=== PATIENT | male | born 1960 | race Caucasian/White ===

== ENCOUNTER 2017-03-22 09:57 | Emergency (ER) | payer OTHER, SELFPAY ==
[2017-03-22 10:24] VITALS: BP 161/95; PULSE 70; RESP 18; TEMP 36.7; O2SAT 98; BMI 32.5
--- NOTE | 2017-03-22 10:24 | CT_ITS ---
CT head/brain wo con HISTORY: 08/12/2014 ITS.REASON: LEFT LEG WEAKNESS AND PRIOR STROKE ORDERING PHYSICIAN: Cliff De Guzman MD PATIENT AGE: 57 years COMPARISON: 08/12/2014 TECHNIQUE: Axial images obtained without contrast. Brain and bone windows reviewed. FINDINGS: No midline shift, mass effect, intracranial hemorrhage, hydrocephalus, or extra-axial fluid collection is evident. Low-density changes are present in the left parietal region consistent with encephalomalacia change from prior infarction. There is mild atrophy of the left cerebral cortex in the frontal and parietal region compared to the right side. The calvarium has an unremarkable appearance. There is opacification of the right mastoid sinus and partial opacification of the left mastoid sinus.. No sinus air-fluid levels.. IMPRESSION: 1. No acute intracranial findings. 2. 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 3. Bilateral mastoid sinus disease 4. There is no evidence of intracranial hemorrhage, focal mass, or acute territorial infarction. A negative CT does not exclude an acute CVA. A follow-up head CT or MRI is recommended if neurological symptoms persist
--- NOTE | 2017-03-22 10:24 | HMH.EDNEU ---
ED Disposition Clinical Impression: Cerebral infarction Qualifiers: Cerebral infarction mechanism: vascular occlusion Precerebral and cerebral artery: carotid artery Laterality of affected vessel: right Qualified Code(s): I63.231 - Cerebral infarction due to unspecified occlusion or stenosis of right carotid arteries Disposition: Xfer Critical Access Hosp Condition on Discharge: Fair Additional Instructions: Discussed with Stroke Team, Dr Hughes. and they will be happy to evaluate but feel he needs access to Vascular Surgery to address his Carotid stenosis. Pt will be going to today for evaluation Referrals: Grady Dao MD [Primary Care Provider] - Time of Disposition: 13:35 - Critical Care Critical Care Time: No Attestation: On 03/22/17, the high probability of a clinically significant, sudden or life threatening deterioration of the following system(s) required my full and direct attention, intervention and personal management. The time I documented below is in addition to time spent performing reported procedures but includes the following listed in this critical care notation. Medical Decision Making - Medical Records Medical records reviewed: Yes: I reviewed the patient's medical records. Vital Signs: 03/22/17 10:24 Temperature 98.0 F Temperature Source Temporal Artery Scan Pulse Rate [Right Brachial] 70 Respiratory Rate 18 Blood Pressure [Right Arm] 161/95 Blood Pressure Mean [Right Arm] 117 Blood Pressure Source [Right Arm] Automatic Cuff Blood Pressure Position [Right Arm] Supine 02 Sat by Pulse Oximetry 98 Oxygen Delivery Method Room Air - Lab Data Lab results reviewed: Yes: I reviewed the patient's lab results. Lab Results 03/22/17 10:08: WBC 8.8, RBC 5.96, Hgb 17.2, Hct 52.8 H, MCV 88.5, MCH 28.9, MCHC 32.6, RDW 13.4, Plt Count 154, MPV 7.8, Neut % (Auto) 69.4, Lymph % (Auto) 22.5, [place] % (Auto) 5.6, Eos % (Auto) 2.1, Baso % (Auto) 0.4, Neut # (Auto) 6.1, Lymph # (Auto) 2.0, [place] # (Auto) 0.5, Eos # (Auto) 0.2, Baso # (Auto) 0.0 03/22/17 10:08: Sodium 139, Potassium 4.1, Chloride 103, Carbon Dioxide 27, Anion Gap 13.1, BUN 16, Creatinine 0.95, Estimated Creat Clear 109, Estimated GFR > 60, Est GFR ( Amer) > 60, Glucose 108 H, Calcium 9.2, Total Bilirubin 0.5, AST 23, ALT 30, Alkaline Phosphatase 78, Total Protein 7.7, Albumin 4.0, Globulin 3.7 H, Albumin/Globulin Ratio 1.1, Plasma/Serum Alcohol 0 03/22/17 10:57: PT 10.9, INR 1.01 03/22/17 11:10: Urine Color Yellow, Urine Appearance Clear, Urine pH 5.5, Ur Specific [place] 1.025, Urine Protein Negative, Urine Glucose (UA) Negative, Urine Ketones Negative, Urine Blood Negative, Urine Nitrate Negative, Urine Bilirubin Negative, Urine Urobilinogen 0.2, Ur Leukocyte Esterase Negative, Urine Bacteria Trace, Urine Mucus 2+ 03/22/17 11:10: Urine Opiates Screen Negative, Ur Barbituates Screen Negative, Ur Phencyclidine Scrn Negative, Ur Amphetamines Screen Negative, U Methamphetamines Scrn Negative, U Benzodiazepines Scrn Negative, Urine Cocaine Screen Negative, U Marijuana (THC) Screen Negative 03/22/17 11:10: POC Glucose 97 Result diagrams: 03/22/17 10:08 03/22/17 10:08 Orders (Tests/Meds): ED MEDICATIONS Discontinued Medications Generic Name Dose Route Start Last Admin Trade Name Frank PRN Reason Stop Dose Admin Clonidine HCl 0.1 mg 03/22/17 10:22 03/22/17 10:39 Clonidine 0.1mg Tablet PO 03/22/17 10:23 0.1 mg ONCE ONE Administration Lorazepam 1 mg 03/22/17 10:17 03/22/17 10:20 Ativan 2mg/Ml Vial IV 03/22/17 10:18 1 mg ONCE ONE Administration ORDERS Category Date Time Status CT head request [CT Request head] Stat Cat Scan 03/22/17 10:18 Taken Glucose,Fasting Stat Lab 03/22/17 10:30 Ordered - CT Data CT Scan: Head Time Received: 13:[address] Reviewed: Yes: I discussed the CT results w/the radiologist, I have viewed the radiologist's interpretation - Mateo Inquiry Pt rece
--- NOTE | 2017-03-22 10:27 | ED_ITS ---
ED Disposition Clinical Impression: Cerebral infarction Qualifiers: Cerebral infarction mechanism: vascular occlusion Precerebral and cerebral artery: carotid artery Laterality of affected vessel: right Qualified Code(s): I63.231 - Cerebral infarction due to unspecified occlusion or stenosis of right carotid arteries Disposition: Xfer Critical Access Hosp Condition on Discharge: Fair Additional Instructions: Discussed with Stroke Team, Dr Hughes. and they will be happy to evaluate but feel he needs access to Vascular Surgery to address his Carotid stenosis. Pt will be going to today for evaluation Referrals: Grady Dao MD [Primary Care Provider] - Time of Disposition: 13:35 - Critical Care Critical Care Time: No Attestation: On 03/22/17, the high probability of a clinically significant, sudden or life threatening deterioration of the following system(s) required my full and direct attention, intervention and personal management. The time I documented below is in addition to time spent performing reported procedures but includes the following listed in this critical care notation. Medical Decision Making - Medical Records Medical records reviewed: Yes: I reviewed the patient's medical records. Vital Signs: 03/22/17 10:24 Temperature 98.0 F Temperature Source Temporal Artery Scan Pulse Rate [Right Brachial] 70 Respiratory Rate 18 Blood Pressure [Right Arm] 161/95 Blood Pressure Mean [Right Arm] 117 Blood Pressure Source [Right Arm] Automatic Cuff Blood Pressure Position [Right Arm] Supine 02 Sat by Pulse Oximetry 98 Oxygen Delivery Method Room Air - Lab Data Lab results reviewed: Yes: I reviewed the patient's lab results. Lab Results 03/22/17 10:08: WBC 8.8, RBC 5.96, Hgb 17.2, Hct 52.8 H, MCV 88.5, MCH 28.9, MCHC 32.6, RDW 13.4, Plt Count 154, MPV 7.8, Neut % (Auto) 69.4, Lymph % (Auto) 22.5, [place] % (Auto) 5.6, Eos % (Auto) 2.1, Baso % (Auto) 0.4, Neut # (Auto) 6.1 , Lymph # (Auto) 2.0, [place] # (Auto) 0.5, Eos # (Auto) 0.2, Baso # (Auto) 0.0 03/22/17 10:08: Sodium 139, Potassium 4.1, Chloride 103, Carbon Dioxide 27, Anion Gap 13.1, BUN 16, Creatinine 0.95, Estimated Creat Clear 109, Estimated GFR > 60, Est GFR ( Amer) > 60, Glucose 108 H, Calcium 9.2, Total Bilirubin 0.5, AST 23, ALT 30, Alkaline Phosphatase 78, Total Protein 7.7, Albumin 4.0, Globulin 3.7 H, Albumin/Globulin Ratio 1.1, Plasma/Serum Alcohol 0 03/22/17 10:57: PT 10.9, INR 1.01 03/22/17 11:10: Urine Color Yellow, Urine Appearance Clear, Urine pH 5.5, Ur Specific [place] 1.025, Urine Protein Negative, Urine Glucose (UA) Negative, Urine Ketones Negative, Urine Blood Negative, Urine Nitrate Negative, Urine Bilirubin Negative, Urine Urobilinogen 0.2, Ur Leukocyte Esterase Negative, Urine Bacteria Trace, Urine Mucus 2+ 03/22/17 11:10: Urine Opiates Screen Negative, Ur Barbituates Screen Negative, Ur Phencyclidine Scrn Negative, Ur Amphetamines Screen Negative, U Methamphetamines Scrn Negative, U Benzodiazepines Scrn Negative, Urine Cocaine Screen Negative, U Marijuana (THC) Screen Negative 03/22/17 11:10: POC Glucose 97 Result diagrams: 03/22/17 10:08 03/22/17 10:08 Orders (Tests/Meds): ED MEDICATIONS Discontinued Medications Generic Name Dose Route Start Last Admin Trade Name Frank PRN Reason Stop Dose Admin Clonidine HCl 0.1 mg 03/22/17 10:22 03/22/17 10:39 Clonidine 0.1mg Tablet PO 03/22/17 10:23 0.1 mg ONC
[2017-03-22 10:34] LABS: Basophils % 0.4 % (0.1-2.0); Eosinophils # 0.2 K/mm3 (0.0-0.4); Eosinophils % 2.1 % (0.1-12.0); Hematocrit 52.8 % (42.0-52.0); Hemoglobin 17.2 g/dL (14.1-18.0); Lymphocytes % 22.5 K/mm3 (10-50); Mean Corpuscular HGB Conc 32.6 g/dL (31.8-35.4); Mean Corpuscular Hemoglobin 28.9 pg (27.0-31.2); Mean Corpuscular Volume 88.5 fl (80-94); Mean Platelet Volume 7.8 fl (7.4-10.4); Monocytes # 0.5 K/mm3 (0.1-1.0); Monocytes % 5.6 % (1.7-9.3); Neutrophils # 6.1 K/mm3 (1.8-7.8); Neutrophils % 69.4 % (37.0-80.0); Platelet Count 154 K/mm3 (142-424); Red Blood Count 5.96 M/mm3 (4.60-6.20); Red Cell Distribution Width 13.4 % (11.5-17.5); White Blood Count 8.8 K/mm3 (4.8-10.8)
[2017-03-22 10:43] LABS: Alanine Aminotransferase 30 U/L (12-78); Albumin/Globulin Ratio 1.1 (1.1-1.8); Alkaline Phosphatase 78 U/L (46-116); Anion Gap 13.1 mEq/L (5-15); Bilirubin,Total 0.5 mg/dL (0.2-1.0); Blood Urea Nitrogen 16 mg/dL (7-18); Calcium 9.2 mg/dL (8.5-10.1); Carbon Dioxide 27 mmol/L (21.0-32.0); Chloride 103 mmol/L (98-107); Creatinine Clearance Estimated 109 mL/min (0-300); Creatinine,Serum 0.95 mg/dL (0.70-1.30); Estimated Glomerular Filt Rate > 60 ml/min (>60); GFR (African American) > 60 ML/MIN (>60); Globulin 3.7 gm/dl (1.3-3.2); Glucose 108 mg/dL (74-106); Sodium 139 mmol/L (136-145); Total Protein,Serum 7.7 gm/dL (6.4-8.2)
[2017-03-22 10:50] LABS: Aspartate Amino Transferase 23 U/L (15-37); Ethyl Alcohol 0 mg/dL (0-99); Potassium 4.1 mmoL/L (3.5-5.1)
[2017-03-22 11:18] LABS: POC Glucose,Bedside 97 mg/dL
[2017-03-22 11:30] LABS: INR 1.01 (0.9-1.1); Prothrombin Time 10.9 seconds (9.4-11.8)
[2017-03-22 11:30] LABS: Microscopic, Urine URINE MICROSCOPIC (MICROSCOPIC)
[2017-03-22 11:37] LABS: Appearance,Urine CLEAR (Clear); Bilirubin,Urine Negative (Negative); Blood, Urine Negative (Negative); Color,Urine YELLOW (Yellow); Glucose,Urine (UA) Negative (Negative); Ketones,Urine Negative (Negative); Leukocyte Esterase,Urine Negative (Negative); Nitrate,Urine Negative (Negative); PH,Urine 5.5 (5.0-8.5); Protein,Urine Negative (Negative); Specific Gravity, Urine 1.025 (1.005-1.030); Urobilinogen,Urine 0.2 EU/dl (0.2)
[2017-03-22 11:45] LABS: Amphetamine/Metha Screen,Urine Negative ng/mL (<1000); Barbiturates Screen,Urine Negative ng/mL (<200); Benzodiazepines Screen,Urine Negative ng/mL (200); Cannabinoid Screen,Urine Negative ng/mL (<50); Cocaine Screen,Urine Negative ng/g (<300); Methadone Screen,Urine Negative ng/mL (<300); Opiate Screen,Urine Negative ng/mL (<300); Phencyclidine Screen,Urine Negative ng/mL (<25)
[2017-03-22 12:02] LABS: Mucus,Urine 2+ /lpf
[2017-03-22 12:03] LABS: Bacteria,Urine Trace /lpf
--- NOTE | 2017-03-22 12:54 | PC.NURSE ---
Call placed to [facility].
[2017-03-22 14:42] VITALS: BP 157/70; PULSE 82; RESP 18; TEMP 36.8
== END 2017-03-22 14:41 | disposition critical access hospital (66) ==
PROVIDERS: Emergency Provider General Practice; Family Provider Emergency Medicine; PCP Emergency Medicine
DX: I63.231 Cerebral infarction due to unspecified occlusion or stenosis of right carotid arteries (principal); I69.344 Monoplegia of lower limb following cerebral infarction affecting left non-dominant side; F17.210 Nicotine dependence, cigarettes, uncomplicated; I10 Essential (primary) hypertension; I25.10 Atherosclerotic heart disease of native coronary artery without angina pectoris; J45.909 Unspecified asthma, uncomplicated; Z79.82 Long term (current) use of aspirin; Z79.899 Other long term (current) drug therapy; Z79.51 Long term (current) use of inhaled steroids
CPT/HCPCS: 70450; 80053; 80305; 81001; 82962; 85025; 85610; 96374; 99283

== ENCOUNTER → 2017-06-04 12:55 | Outpatient (CLI) | payer OTHER, SELFPAY ==
--- NOTE | 2017-06-04 12:59 | MR_ITS ---
MR lumbar spine wo con, MR 3-d myelogram/MRCP HISTORY: Low back pain with left leg numbness resting left leg when walking, occasional urinary incontinence ORDERING PHYSICIAN: Grady Dao MD PATIENT AGE: 57 years COMPARISON: None TECHNIQUE: Standard multiplanar multiecho sequences are performed without contrast. 3-D MIP and myelographic images are also rendered and reviewed FINDINGS: There is normal alignment. The spinal cord ends at the T12-L1 level. T11-T12 mild facet hypertrophic change with mild concentric bulging disc with lateral disc aspect complexes T12-L1: Mild degenerative disc disease with mild concentric bulging disc with lateral disc osteophyte complexes L1-L2: Mild degenerative disc disease with some endplate irregularity involving the inferior aspect of L1. L2-L3: Mild concentric bulging disc with right lateral disc osteophyte complex L3-L4: Mild concentric bulging disc along with facet and ligamentum hypertrophy. There is mild bilateral lateral recess narrowing and mild bilateral foraminal narrowing. L4-5: Mild anterolisthesis of L4 with concentric bulging disc along with facet and ligamentum flavum hypertrophy. There is severe narrowing of the canal in both AP and transverse plane measuring 7 mm in the transverse plane with severe bilateral lateral recess narrowing and moderate bilateral foraminal narrowing. L5-S1: Concentric bulging disc with facet and ligamentum flavum hypertrophy with bilateral moderate foraminal narrowing No extruded herniated disc evident. IMPRESSION: Multilevel lumbar spondylosis with multilevel degenerative disc disease and bulging disc with lateral disc osteophyte complexes. Please see above for detailed description at each level Mild anterolisthesis of L4 with concentric bulging disc at L4-L5 along with facet and ligamentum flavum hypertrophy. There is severe narrowing of the canal in both AP and transverse plane measuring 7 mm in the transverse plane with severe bilateral lateral recess narrowing and moderate bilateral foraminal narrowing
== END ==
PROVIDERS: Family Provider Emergency Medicine; PCP Emergency Medicine; Visit Provider Emergency Medicine
DX: M54.5 Low back pain (principal)
CPT/HCPCS: 72148; 76376

== ENCOUNTER → 2017-06-22 09:20 | Outpatient (REF) | payer OTHER, SELFPAY ==
[2017-06-22 13:38] LABS: Basophils % 0.4 % (0.1-2.0); Eosinophils # 0.1 K/mm3 (0.0-0.4); Eosinophils % 2.2 % (0.1-12.0); Hematocrit 50.6 % (42.0-52.0); Hemoglobin 16.4 g/dL (14.1-18.0); Lymphocytes # 1.1 K/mm3 (0.7-4.5); Lymphocytes % 16.9 K/mm3 (10-50); Mean Corpuscular HGB Conc 32.4 g/dL (31.8-35.4); Mean Corpuscular Hemoglobin 28.9 pg (27.0-31.2); Mean Corpuscular Volume 89.3 fl (80-94); Mean Platelet Volume 8.7 fl (7.4-10.4); Monocytes # 0.4 K/mm3 (0.1-1.0); Monocytes % 6.3 % (1.7-9.3); Neutrophils # 4.9 K/mm3 (1.8-7.8); Neutrophils % 74.1 % (37.0-80.0); Platelet Count 150 K/mm3 (142-424); Red Blood Count 5.67 M/mm3 (4.60-6.20); Red Cell Distribution Width 13.6 % (11.5-17.5); White Blood Count 6.6 K/mm3 (4.8-10.8)
[2017-06-22 15:05] LABS: Alanine Aminotransferase 26 U/L (12-78); Albumin Level 3.7 gm/dL (3.4-5.0); Albumin/Globulin Ratio 1.3 (1.1-1.8); Alkaline Phosphatase 83 U/L (46-116); Anion Gap 10.6 mEq/L (5-15); Aspartate Amino Transferase 15 U/L (15-37); Bilirubin,Total 0.3 mg/dL (0.2-1.0); Blood Urea Nitrogen 10 mg/dL (7-18); Calcium 8.9 mg/dL (8.5-10.1); Carbon Dioxide 29 mmol/L (21.0-32.0); Chloride 110 mmol/L (98-107); Chol/HDL Ratio 3.9 (1-3.5); Cholesterol 121 mg/dL (140-200); Creatinine,Serum 0.84 mg/dL (0.70-1.30); Estimated Glomerular Filt Rate 94 ml/min (>60); GFR (African American) 113 ML/MIN (>60); Globulin 2.8 gm/dl (1.3-3.2); Glucose 83 mg/dL (74-106); HDL Cholesterol 31 mg/dL (27-67); LDL Cholesterol 59 mg/dL (0-130); Potassium 4.6 mmoL/L (3.5-5.1); Sodium 145 mmol/L (136-145); T4 (Thyroxine) 9.6 ug/dl (4.7-13.3); Thyroid Stimulating Hormone 1.19 uIU/ml (0.358-3.740); Total Protein,Serum 6.5 gm/dL (6.4-8.2); Triglycerides 153 mg/dL (30-200); VLDL Cholesterol 31 mg/dL (0-40)
[2017-06-24 15:53] LABS: PSA, Free 0.27 ng/mL; Prostate Specific Ag 0.8 ng/mL (0.0-4.0)
== END ==
LOC: LAB 09:20
PROVIDERS: Visit Provider Physician Assistant
DX: I10 Essential (primary) hypertension (principal)
CPT/HCPCS: 80053; 80061; 84153; 84154; 84436; 84443; 85025

== ENCOUNTER → 2017-07-01 13:30 | Outpatient (POV) | payer OTHER, SELFPAY | PROVIDERS: Family Provider Emergency Medicine; PCP Emergency Medicine; Visit Provider Neurological Surgery | DX: Z00.00 Encounter for general adult medical examination without abnormal findings (principal) ==

== ENCOUNTER → 2017-07-05 10:02 | Outpatient (CLI) | payer OTHER, SELFPAY ==
--- NOTE | 2017-07-05 10:03 | MR_ITS ---
MR cervical spine wo con, MR 3-d myelogram/MRCP HISTORY: Bilateral upper extremity and Hand Numbness, LT side neck discomfort since March. LT leg won't work at times and will have uncontrollable shaking in LT Leg. Rt leg will do the same at times . ITS.REASON: bilateral upper extremity numbness; lumbar stenosis ORDERING PHYSICIAN: ANDRES Porras PATIENT AGE: 57 years TECHNIQUE: Standard multiplanar multiecho sequences are performed without contrast. 3-D MIP and myelographic images are also rendered and reviewed FINDINGS: Motion artifact somewhat obscures fine detail. There is normal alignment. Craniocervical junction has an unremarkable appearance. C2-C3: Mild left foraminal narrowing from uncovertebral and facet hypertrophy. C3-C4: Mild degenerative disc disease with a small broad-based left paracentral and foraminal disc osteophyte complex causing left lateral recess and foraminal narrowing. Mild right foraminal narrowing from uncovertebral hypertrophy. C4-C5: Degenerative disc disease with bulging disc with type I endplate changes. There is bulging disc with a small central disc protrusion/herniation with mild to moderate compression upon the cord centrally with canal stenosis of 8 mm. There is increased T2 signal of the cord at this region suggesting some underlying edema or gliotic change. Bilateral foraminal and lateral recess narrowing is present from bilateral uncovertebral disc osteophyte complexes. C5-C6: Degenerative disc disease with mild bulging disc. C6-C7 and C7-T1 have an unremarkable appearance. Upper thoracic sagittal images show degenerative disc disease at T1-T2 and T2-T3 with bulging disc. IMPRESSION: 1. Abnormal MRI of the cervical spine with multilevel cervical spondylosis with degenerative disc disease, bulging disc, disc osteophyte complexes and uncovertebral and facet arthrosis as described above. Please evaluate for detail description at each level. There is degenerative disc disease and upper thoracic spine as well. 2. Small broad-based left paracentral and foraminal disc osteophyte complex at C3-C4 causing left lateral recess and foraminal narrowing. 3. Degenerative disc disease with bulging disc and small central disc protrusion/herniation at C4-C5 causing mild to moderate central compression upon the cord with bilateral disc osteophyte complexes of the vertebral region with bilateral lateral recess and foraminal narrowing. There is increased T2 signal of the cord this region suggesting underlying edema or gliosis IMPRESSION:
== END ==
PROVIDERS: Family Provider Emergency Medicine; PCP Emergency Medicine; Visit Provider Physician Assistant
DX: R20.0 Anesthesia of skin (principal); M54.2 Cervicalgia
CPT/HCPCS: 72141; 76376

== ENCOUNTER → 2017-10-21 11:06 | Outpatient (CLI) | payer OTHER, SELFPAY ==
[2017-10-21 11:27] LABS: Blood Urea Nitrogen 15 mg/dL (7-18); Creatinine,Serum 0.97 mg/dL (0.70-1.30); Estimated Glomerular Filt Rate 79 ml/min (>60); GFR (African American) 96 ML/MIN (>60)
== END ==
PROVIDERS: Physician Assistant Medical; Family Provider Emergency Medicine; PCP Emergency Medicine; Visit Provider Neurological Surgery
DX: Z00.00 Encounter for general adult medical examination without abnormal findings (principal); R20.2 Paresthesia of skin
CPT/HCPCS: 36415; 82565; 84520

== ENCOUNTER → 2017-11-26 12:26 | Outpatient (CLI) | payer OTHER, SELFPAY ==
--- NOTE | 2017-11-26 12:27 | CA_ITS ---
PROCEDURE: 2-D M-mode and color Doppler study INDICATIONS FOR THE TEST: Chest pain COPD Heart Murmur+ Tobacco Smoking+ Palpitations Fatigue+ Syncope Edema+ Hypertension+Diabetes Mellitus Rheumatic Fever SOB+ROE+Obesity Hyperlipidemia Family History HD+ Additional History Abn EKG, PAD, Hx of CVA, dizziness, hx [place], asthma PATIENT INFORMATION HEIGHT: 66 WEIGHT: 194 GENDER: Male B/P:194/97 2-D/M-MODE INTERPRETATION: 2-D MEASUREMENTS OBSERVED VALUES IN CMS Right Ventricular Dimension (RVDd) 2.2 Interventricular Septum (Thickness)(IVsd) 1.2 Left Ventricular Internal Dimensions(LVIDd) 4.2 Left Ventricular Posterior Wall (Thickness)(LVPWd) 1.2 Aortic Root 2.8 Aortic Cusp Separation 1.8 Left Atrial Dimensions (LAD) 3.5 2D 1. Left atrium is mildly enlarged, left ventricle is normal size, mild concentric left ventricular hypertrophy, visually estimated ejection fraction 55% with no regional wall motion abnormality. 2. The right atrium and right ventricle are normal size and contractility. 3. The aortic valve is thickened and calcified with mild restriction the leaflet mobility. 4. The mitral and tricuspid valvular grossly normal. 5. The pulmonic valve is poorly visualized. 6. No significant pericardial effusion noted. DOPPLER INTERROGATION: 1. The maximum aortic out flow velocity recorded study is 2.2 m/s, resulting in a mean gradient across valve of 9 mmHg represents mild aortic stenosis, there is no aortic insufficiency. 2. The mitral inflow velocity within normal range, there is no mitral stenosis, there is mild mitral regurgitation, grade 1 diastolic dysfunction seen with tissue Doppler evidence of raised left atrial pressure. 3. Mild tricuspid regurgitation, tricuspid regurgitation jet velocity is insufficient for calculation of the right ventricular systolic pressure. CONCLUSION: 1. Mildly enlarged left atrium, normal left ventricular size, mild concentric left ventricular hypertrophy, visually estimated ejection fraction of 55% with no regional wall motion abnormality, grade 1 diastolic dysfunction seen with tissue Doppler evidence of raised left atrial pressure. 2. Thickened and calcified aortic valve with mean gradient across valve of 9 mmHg,represents mild aortic stenosis, there is no aortic insufficiency present. 3. Mild tricuspid regurgitation 4. No significant pericardial effusion noted.
--- NOTE | 2017-11-26 12:27 | US_ITS ---
US Arterial Ankle Brachial Ind History: Bilateral foot discoloration, peripheral vascular disease, current smoker, hypertension ITS.REASON: htn ORDERING PHYSICIAN: Damon Art MD PATIENT AGE: 57 years TECHNIQUE: Segmental pressures obtained of both right and left leg. These are compared to brachial blood pressure to yield index at each level sampled including summary ROSA. The data sheets from the procedure are available in PACS FINDINGS Rest study only performed today No prior studies available for comparison. Blood pressures reported are in millimeters mercury. RIGHT LEG ROSA = 0.7. RIGHT LEG TBI=0.7 Brachial BP: 121 Thigh BP: Not performed due to synthetic graft Calf BP: 76 Ankle PT: 88 Ankle DP : 74 Digit =83 LEFT LEG ROSA = 0.6 LEFT LEG TBI= 0.7 Brachial BPD: 122 Thigh BP: 77 Calf BP: 72 Ankle PT:74 Ankle DP: 68 Digit = 82 Pulses and waveforms: Abnormal waveforms and diminished pulses IMPRESSION: Abnormal ABIs of 0.7 on the right and 0.6 on the left and diminished pulses and abnormal waveforms suggesting moderate atherosclerotic vascular disease
== END ==
PROVIDERS: Family Provider Emergency Medicine; PCP Emergency Medicine; Visit Provider Internal Medicine
DX: R94.31 Abnormal electrocardiogram [ECG] [EKG] (principal); R01.1 Cardiac murmur, unspecified; R06.09 Other forms of dyspnea; I10 Essential (primary) hypertension; F10.20 Alcohol dependence, uncomplicated; F17.200 Nicotine dependence, unspecified, uncomplicated; I63.9 Cerebral infarction, unspecified; I65.23 Occlusion and stenosis of bilateral carotid arteries; I73.9 Peripheral vascular disease, unspecified; M48.00 Spinal stenosis, site unspecified; R09.89 Other specified symptoms and signs involving the circulatory and respiratory systems; R20.0 Anesthesia of skin; R42 Dizziness and giddiness; Z82.49 Family history of ischemic heart disease and other diseases of the circulatory system
CPT/HCPCS: 93306; 93922

== ENCOUNTER → 2017-12-02 08:12 | Outpatient (CLI) | payer OTHER, SELFPAY ==
--- NOTE | 2017-12-02 08:14 | AS_ITS ---
Renal Arterial Duplex Indications: 405.91 Unspecified renovascular hypertension. IMPRESSIONS 1. Greater than 60% stenosis involving the right renal artery 2. Greater than 60% stenosis involving the left renal artery 3. Kidney size is within normal limits, bilaterally. Renal veins appear patent, bilaterally. Complete renal arterial duplex. Duplex scan and Doppler flow study including spectral analysis, color and pena scale imaging. Height: Height: 167.6cm. Height: 66in. Weight: Weight: 86.2kg. Weight: 189.6lb. Body mass index: BMI: 30.7kg/m^2. Body surface area: BSA: 2.03m^2. Location: Vascular laboratory. Patient status: Outpatient. Tables: Arterial flow: + +-------+--------+ Location V sys V ed + +-------+--------+ Right renal - proximal 221cm/s 69.3cm/s + +-------+--------+ Right renal - mid 310cm/s 63.4cm/s + +-------+--------+ Right renal - distal 243cm/s 69.5cm/s + +-------+--------+ Left renal - proximal 227cm/s 63.4cm/s + +-------+--------+ Left renal - mid 183cm/s 50.2cm/s + +-------+--------+ Left renal - distal 201cm/s 47.2cm/s + +-------+--------+ Right renal - Origin 201cm/s 69cm/s + +-------+--------+ Left renal - Origin 371cm/s 92cm/s + +-------+--------+ Aorta 89cm/s -------- + +-------+--------+ Artery mapping: + +--------+-------+ Location Diameter Patency + +--------+-------+ Abdominal aorta - mid 1.7mm Patent + +--------+-------+ Renal anatomy: + +-----+------+ Left Right + +-----+------+ Long axis 9.7cm 10.8cm + +-----+------+ Short axis 4.5cm 5.3cm + +-----+------+ Velocity ratios: + +-----+ V sys + +-----+ Right renal/aortic 3.5 + +-----+ Left renal/aortic 4.2 + +-----+ (Report amended ) Electronically signed by: Himanshu Pitts [id number]
--- NOTE | 2017-12-02 08:14 | US_ITS ---
US abd. aorta screening HISTORY: ITS.REASON: abdominal bruit, screening for aortic aneurysm ORDERING PHYSICIAN: Damon Art MD PATIENT AGE: 57 years Comparison: None FINDINGS: Transverse and longitudinal images are obtained of the abdominal aorta showing mild amount plaque. No evidence of abdominal aortic aneurysm. Proximal common iliacs are not demonstrated. Maximum AP dimension of the aorta is approximately 1.4 cm. IMPRESSION: No evidence of abdominal aortic aneurysm. Mild atheromatous changes of the aorta
== END ==
PROVIDERS: Family Provider Emergency Medicine; PCP Emergency Medicine; Visit Provider Internal Medicine
DX: I10 Essential (primary) hypertension (principal); I63.9 Cerebral infarction, unspecified; I65.23 Occlusion and stenosis of bilateral carotid arteries; R06.09 Other forms of dyspnea; F10.20 Alcohol dependence, uncomplicated; F17.200 Nicotine dependence, unspecified, uncomplicated; I73.9 Peripheral vascular disease, unspecified; M48.00 Spinal stenosis, site unspecified; R01.1 Cardiac murmur, unspecified; R09.89 Other specified symptoms and signs involving the circulatory and respiratory systems; R20.0 Anesthesia of skin; R42 Dizziness and giddiness; R94.31 Abnormal electrocardiogram [ECG] [EKG]; Z82.49 Family history of ischemic heart disease and other diseases of the circulatory system
CPT/HCPCS: 76705; 93976

== ENCOUNTER → 2018-01-27 08:46 | Outpatient (CLI) | payer OTHER, SELFPAY | PROVIDERS: PCP Emergency Medicine; Visit Provider Internal Medicine Cardiovascular Disease | DX: G47.33 Obstructive sleep apnea (adult) (pediatric) (principal) | CPT/HCPCS: 95806 ==

== ENCOUNTER → 2018-05-11 12:34 | Outpatient (CLI) | payer OTHER, SELFPAY ==
--- NOTE | 2018-05-11 12:41 | CI_ITS ---
Cerebrovascular Exam Indications: Follow-up carotid 433.10. IMPRESSIONS 1. The bilateral vertebral arteries are patent with normal antegrade flow. 2. Study suggests less than 20% stenosis involving the right internal carotid artery. Disease regression from the study of 10-Nov-2016. 3. Study suggests occlusion involving the left common carotid and internal carotid artery. No change from the study of 10-Nov-2016. 4. Study suggests occlusion involving the left common and internal carotid artery. No change from the study of 10-Nov-2016. History: Hx of Stroke. Risk factors: Current tobacco use. Hypertension. Labs, prior tests, procedures, and surgery: Right endarterectomy. 2017 Labs, prior tests, procedures, and surgery: Right endarterectomy. 2017 Carotid duplex study. Complete study and Doppler flow study including spectral analysis, color and pena scale imaging. Height: Height: 167.6cm. Height: 66in. Weight: Weight: 95.3kg. Weight: 209.6lb. Body mass index: BMI: 33.9kg/m^2. Body surface area: BSA: 2.14m^2. Location: Vascular laboratory. Patient status: Outpatient. Tables: Arterial flow: + +--------+--------+ Location V sys V ed + +--------+--------+ Right CCA - proximal 87.2cm/s 20.4cm/s + +--------+--------+ Right CCA - distal 74.6cm/s 27.5cm/s + +--------+--------+ Right ECA 127cm/s 20.4cm/s + +--------+--------+ Right ICA - proximal 114cm/s 17.3cm/s + +--------+--------+ Right ICA - mid 93.5cm/s 36.9cm/s + +--------+--------+ Right ICA - distal 63.6cm/s 22.8cm/s + +--------+--------+ Right vertebral 72.3cm/s 20.4cm/s + +--------+--------+ Left ECA 73.1cm/s 14.1cm/s + +--------+--------+ Left vertebral 75.4cm/s 22cm/s + +--------+--------+ (Report amended ) Electronically signed by: Himanshu Pitts [id number]
== END ==
LOC: RT 12:39
PROVIDERS: PCP Emergency Medicine; Visit Provider Internal Medicine Cardiovascular Disease
DX: I65.23 Occlusion and stenosis of bilateral carotid arteries (principal)
CPT/HCPCS: 93880

== ENCOUNTER → 2019-08-30 13:54 | Outpatient (CLI) | payer OTHER, SELFPAY ==
[2019-08-30 14:36] LABS: Chloride 106 mmol/L (98-107)
[2019-08-30 14:37] LABS: Potassium 4.2 mmoL/L (3.5-5.1); Sodium 141 mmol/L (136-145)
[2019-08-30 14:39] LABS: Alanine Aminotransferase 20 U/L (12-78); Anion Gap 11.2 mEq/L (5-15); Aspartate Amino Transferase 21 U/L (17-59); Carbon Dioxide 28 mmol/L (22.0-30.0)
[2019-08-30 14:40] LABS: Albumin/Globulin Ratio 1.7 (1.1-1.8); Cholesterol 234 mg/dl (140-200); Globulin 2.4 g/dL (1.3-3.2); HDL Cholesterol 39 mg/dl (40-60); Total Protein,Serum 6.4 g/dl (6.3-8.2); Triglycerides 324 mg/dl (30-150); VLDL Cholesterol 65 mg/dL (0-40)
[2019-08-30 14:44] LABS: Blood Urea Nitrogen 18 mg/dl (9-20); Estimated Glomerular Filt Rate 76 ml/min (>60); GFR (African American) 92 ML/MIN (>60)
[2019-08-30 14:52] LABS: Direct LDL Cholesterol 53.86 mg/dL (100-129)
[2019-08-30 14:57] LABS: Free T4 (Free Thyroxine) 1.35 ng/dl (0.78-2.19)
[2019-08-30 15:01] LABS: Basophils % 0.2 % (0.1-2.0); Eosinophils # 0.2 K/mm3 (0.0-0.4); Eosinophils % 2.5 % (0.1-12.0); Hemoglobin 16.1 g/dL (14.1-18.0); Lymphocytes # 1.8 K/mm3 (0.7-4.5); Lymphocytes % 24.9 % (10-50); Mean Corpuscular HGB Conc 33.5 g/dL (31.8-35.4); Mean Corpuscular Hemoglobin 30.1 pg (27.0-31.2); Mean Corpuscular Volume 89.9 fl (80-94); Monocytes # 0.4 K/mm3 (0.1-1.0); Monocytes % 5.1 % (1.7-9.3); Neutrophils # 4.8 K/mm3 (1.8-7.8); Neutrophils % 67.2 % (37.0-80.0); Platelet Count 157 K/mm3 (142-424); Red Blood Count 5.34 M/mm3 (4.60-6.20); Red Cell Distribution Width 14.1 % (11.5-17.5); White Blood Count 7.1 K/mm3 (4.8-10.8)
[2019-08-30 15:11] LABS: Thyroid Stimulating Hormone 1.38 uIU/mL (0.465-4.68)
[2019-08-30 15:38] LABS: Alkaline Phosphatase 73 U/L (38-126); Bilirubin,Total 0.6 mg/dl (0.2-1.3); Calcium 8.6 mg/dl (8.4-10.2); Glucose 118 mg/dl (74-100)
[2019-09-02 06:20] LABS: PSA, Free 0.36 ng/mL; Prostate Specific Ag 0.8 ng/mL (0.0-4.0)
[2019-09-03 23:57] LABS: 1,25 Dihydroxy Vitamin D 48 pg/mL (.); 1,25-Dihydroxy, Vitamin D-2 <10 pg/mL (.); 1,25-Dihydroxy, Vitamin D-3 48 pg/mL (.)
== END ==
PROVIDERS: Visit Provider Physician Assistant
DX: R53.83 Other fatigue (principal); I10 Essential (primary) hypertension; K59.00 Constipation, unspecified; D64.9 Anemia, unspecified; E03.9 Hypothyroidism, unspecified
CPT/HCPCS: 80053; 80061; 82652; 83735; 84153; 84154; 84439; 84443; 85025

== ENCOUNTER → 2019-12-07 18:54 | Outpatient (CLI) | payer OTHER, SELFPAY ==
[2019-12-07 19:01] LABS: Basophils % 0.5 % (0.1-2.0); Eosinophils # 0.1 K/mm3 (0.0-0.4); Eosinophils % 2.1 % (0.1-12.0); Hematocrit 45.8 % (42.0-52.0); Hemoglobin 16.1 g/dL (14.1-18.0); Lymphocytes # 1.4 K/mm3 (0.7-4.5); Lymphocytes % 21.1 % (10-50); Mean Corpuscular HGB Conc 35.1 g/dL (31.8-35.4); Mean Corpuscular Hemoglobin 30.7 pg (27.0-31.2); Mean Corpuscular Volume 87.5 fl (80-94); Mean Platelet Volume 9.2 fl (7.4-10.4); Monocytes # 0.4 K/mm3 (0.1-1.0); Monocytes % 6.7 % (1.7-9.3); Neutrophils # 4.6 K/mm3 (1.8-7.8); Neutrophils % 69.7 % (37.0-80.0); Platelet Count 147 K/mm3 (142-424); Red Blood Count 5.24 M/mm3 (4.60-6.20); Red Cell Distribution Width 13.7 % (11.5-17.5); White Blood Count 6.6 K/mm3 (4.8-10.8)
[2019-12-07 19:17] LABS: Alanine Aminotransferase 23 U/L (12-78); Albumin Level 4.2 g/dl (3.5-5.0); Albumin/Globulin Ratio 1.7 (1.1-1.8); Alkaline Phosphatase 82 U/L (38-126); Anion Gap 11.2 mEq/L (5-15); Aspartate Amino Transferase 23 U/L (17-59); Bilirubin,Total 0.5 mg/dl (0.2-1.3); Blood Urea Nitrogen 16 mg/dl (9-20); Calcium 9.7 mg/dl (8.4-10.2); Carbon Dioxide 31 mmol/L (22.0-30.0); Chloride 104 mmol/L (98-107); Chol/HDL Ratio 4.3 (1-3.5); Cholesterol 154 mg/dl (140-200); Estimated Glomerular Filt Rate 86 ml/min (>60); GFR (African American) 104 ML/MIN (>60); Globulin 2.5 g/dL (1.3-3.2); Glucose 98 mg/dl (74-100); HDL Cholesterol 36 mg/dl (40-60); Potassium 4.2 mmoL/L (3.5-5.1); Sodium 142 mmol/L (136-145); Total Protein,Serum 6.7 g/dl (6.3-8.2); Triglycerides 231 mg/dl (30-150); VLDL Cholesterol 46 mg/dL (0-40)
[2019-12-07 19:28] LABS: Direct LDL Cholesterol 45.59 mg/dL (100-129)
[2019-12-07 19:34] LABS: T4 (Thyroxine) 10.1 ug/dl (5.53-11.0)
[2019-12-07 19:48] LABS: Prostate Specific Ag Screen 0.8 ng/ml (0.0-4.0); Thyroid Stimulating Hormone 2.21 uIU/mL (0.465-4.68)
== END ==
LOC: LAB.DROPOF 18:55
PROVIDERS: Visit Provider Physician Assistant
DX: M48.062 Spinal stenosis, lumbar region with neurogenic claudication (principal); Z79.899 Other long term (current) drug therapy; Z12.5 Encounter for screening for malignant neoplasm of prostate
CPT/HCPCS: 80053; 80061; 84436; 84443; 85025; G0103

== ENCOUNTER 2020-04-04 18:09 | Emergency (ER) | payer OTHER, SELFPAY ==
[2020-04-04 18:10] VITALS: BP 186/110; PULSE 69; RESP 20; TEMP 36.8; O2SAT 100; BMI 32.4
--- NOTE | 2020-04-04 18:25 | ECG_ITS ---
APPROVED REPORT Exam: Resting ECG HR:81 bpm ECG Measurements Heart Rate 81 AXES NE 152 P 60 QRSd 92 QRS 43 QT 390 T 63 QTc 453 Conclusion Normal sinus rhythm Normal ECG Electronically signed by : Thanh Penn, 04/05/2020 18:05:51
--- NOTE | 2020-04-04 18:30 | XR_ITS ---
PROCEDURE: XR CHEST 2V CLINICAL HISTORY: PAIN COMPARISON: CR CXR CHEST(2 VIEWS-NOT PORTABLE) from 03/01/2014 CR CXR1 CHEST-PORTABLE from 08/12/2014 FINDINGS: The cardiomediastinal silhouette and pulmonary vascularity are within normal limits. The lungs are clear without infiltrates, suspicious nodules, or pleural effusions. Calcified granulomas present in the right midlung. There are degenerative changes in the thoracic spine. Bone plate is present along the lower cervical spine with degenerative disc disease noted in the lower cervical spine IMPRESSION: No acute findings. Dictated by: Himanshu Pitts MD 04/04/2020 20:29 Himanshu Pitts MD in [facility] 04/04/2020 20:29
--- NOTE | 2020-04-04 18:37 | PC.NURSE ---
Pt to rad.
[2020-04-04 18:39] LABS: Basophils # 0.1 K/mm3 (0-0.2); Basophils % 0.6 % (0.1-2.0); Eosinophils # 0.2 K/mm3 (0.0-0.4); Eosinophils % 2.1 % (0.1-12.0); Hematocrit 47.8 % (42.0-52.0); Hemoglobin 15.9 g/dL (14.1-18.0); Lymphocytes # 1.7 K/mm3 (0.7-4.5); Lymphocytes % 21.5 % (10-50); Mean Corpuscular HGB Conc 33.4 g/dL (31.8-35.4); Mean Corpuscular Hemoglobin 29.3 pg (27.0-31.2); Mean Corpuscular Volume 87.9 fl (80-94); Mean Platelet Volume 7.7 fl (7.4-10.4); Monocytes # 0.5 K/mm3 (0.1-1.0); Monocytes % 6.6 % (1.7-9.3); Neutrophils # 5.4 K/mm3 (1.8-7.8); Neutrophils % 69.2 % (37.0-80.0); Platelet Count 130 K/mm3 (142-424); Red Blood Count 5.43 M/mm3 (4.60-6.20); Red Cell Distribution Width 13.4 % (11.5-17.5); White Blood Count 7.9 K/mm3 (4.8-10.8)
[2020-04-04 18:44] LABS: Chloride 102 mmol/L (98-107); Potassium 3.7 mmoL/L (3.5-5.1); Sodium 141 mmol/L (136-145)
[2020-04-04 18:45] VITALS: BP 194/82; PULSE 66; O2SAT 100
[2020-04-04 18:47] LABS: Anion Gap 11.7 mEq/L (5-15); Blood Urea Nitrogen 15 mg/dl (9-20); Carbon Dioxide 31 mmol/L (22.0-30.0); Creatinine Clearance Estimated 99 mL/min (50-200); Estimated Glomerular Filt Rate 86 ml/min (>60); GFR (African American) 103 ML/MIN (>60); Glucose 124 mg/dl (74-100)
[2020-04-04 18:48] LABS: Calcium 9.7 mg/dl (8.4-10.2)
[2020-04-04 19:01] LABS: Troponin I < 0.01 ng/ml (0.00-0.034)
--- NOTE | 2020-04-04 19:36 | PC.NURSE ---
REPORT GIVEN TO QUIRINO SAMSON
--- NOTE | 2020-04-04 20:34 | HMH.EDGENADL ---
ED Disposition Clinical Impression: Atypical angina, Obesity (BMI 30.0-34.9), Tobacco use Hypertension Qualifiers: Hypertension type: unspecified Qualified Code(s): I10 - Essential (primary) hypertension Disposition: Home, Self-Care Condition on Discharge: Good Instructions: DI for Chest Pain Additional Instructions: see card in am and recheck in ed tonight if any problems Referrals: Grady Dao MD [Primary Care Provider] - - Critical Care Critical Care Time: No Attestation: On 04/04/20, the high probability of a clinically significant, sudden or life threatening deterioration of the following system(s) required my full and direct attention, intervention and personal management. The time I documented below is in addition to time spent performing reported procedures but includes the following listed in this critical care notation. Medical Decision Making - Medical Records Medical records reviewed: Yes: I reviewed the patient's medical records. - Mateo Inquiry Pt receiving controlled substance: No Vital Signs: 04/04/20 18:10 04/04/20 18:45 Temperature 98.2 F Temperature Source Oral Pulse Rate [Left Radial] 69 66 Respiratory Rate 20 Blood Pressure [Right Arm] 186/110 H 194/82 H Blood Pressure Mean [Right Arm] 135 119 Blood Pressure Source [Right Arm] Automatic Cuff Automatic Cuff Blood Pressure Position [Right Arm] Sitting Sitting 02 Sat by Pulse Oximetry 100 100 Oxygen Delivery Method Room Air Room Air - Lab Data Lab results reviewed: Yes: I reviewed the patient's lab results. Lab Results 04/04/20 18:20: WBC 7.9, RBC 5.43, Hgb 15.9, Hct 47.8, MCV 87.9, MCH 29.3, MCHC 33.4, RDW 13.4, Plt Count 130 L, MPV 7.7, Neut % (Auto) 69.2, Lymph % (Auto) 21.5, Benton % (Auto) 6.6, Eos % (Auto) 2.1, Baso % (Auto) 0.6, Neut # (Auto) 5.4, Lymph # (Auto) 1.7, Benton # (Auto) 0.5, Eos # (Auto) 0.2, Baso # (Auto) 0.1 04/04/20 18:20: Sodium 141, Potassium 3.7, Chloride 102, Carbon Dioxide 31 H, Anion Gap 11.7, BUN 15, Creatinine 0.90, Estimated Creat Clear 99, Estimated GFR 86, Est GFR ( Amer) 103, Glucose 124 H, Calcium 9.7, Troponin I < 0.01 04/04/20 21:38: Troponin I < 0.01 Result diagrams: 04/04/20 18:20 04/04/20 18:20 Orders (Tests/Meds): ORDERS Category Date Time Status Troponin I Q3H Lab 04/05/20 00:45 Ordered - Radiology Data #1 Image(s): Chest Image Reviewed: Yes I reviewed the patient's radiology image Preliminary Findings: Normal/NAD - ECG Data Tracing #1 Normal Sinus Rhythm: Yes Ischemic changes: non-specific ST-T wave changes - YAIR Score for Non-Stemi Age of Patient: 60-69 years old Heart Rate: 50-69 bpm Systolic Blood Pressure: 160-199 mmHg Serum Creatinine: 0.80-1.19 mg/dl CHF Killip Class: I-No CHF Other Risk Factors: None Non-Stemi Risk Score: 78 Medical Decision Narrative: prob atypical angina and need to see card in am or returnt to ed if any more sx General Adult HPI - General Chief complaint: PAIN Stated complaint: right shoulder pain and HBP Time Seen by Provider: 04/04/20 20:00 Mode of Arrival: Ambulatory Source of Information: Patient, Spouse, Medical Record Limitations: No Limitations Description of Symptoms (Recalled from ER Triage Doc. by RN): C/O LEFT SHOULDER PAIN AND HE HAS BEEN MONITORING HIS BLOOD PRESSURE AND IT HAS BEEN HIGH IN THE SBP OF 200'S. PT STATES HE JUST FEELS DIFFERENT - History of Present Illness HPI narrative: 3 episodes of lt shoulder pain with no nausea or diaphoresis - no known ht dis and no def chest pain Onset (ago): hour(s) Location: upper extremity Severity: moderate Associated symptoms: denies other symptoms Treatments prior to arrival: none - Related Data Home Medications Medication Instructions Recorded Confirmed aspirin 81 mg tablet,delayed 81 mg PO DAILY 04/28/18 12/07/19 release carvediloL [Carvedilol 25mg Tab] 25 mg PO BID 12/01/18 12/07/19 Previous Rx's Medication Inst
[2020-04-04 22:12] LABS: Troponin I < 0.01 ng/ml (0.00-0.034)
[2020-04-04 22:41] VITALS: BP 182/86; PULSE 68; RESP 16; TEMP 36.8; O2SAT 98
== END 2020-04-04 22:44 | disposition home or self-care (01) ==
PROVIDERS: Emergency Provider Emergency Medicine; PCP Emergency Medicine
DX: I20.8 Other forms of angina pectoris (principal); I10 Essential (primary) hypertension; I25.10 Atherosclerotic heart disease of native coronary artery without angina pectoris; E78.5 Hyperlipidemia, unspecified; Z79.899 Other long term (current) drug therapy; F17.210 Nicotine dependence, cigarettes, uncomplicated; E66.9 Obesity, unspecified; Z68.32 Body mass index [BMI] 32.0-32.9, adult
CPT/HCPCS: 71046; 80048; 84484; 85025; 93005; 99283

== ENCOUNTER → 2020-05-15 06:08 | Outpatient (CLI) | payer OTHER, SELFPAY ==
--- NOTE | 2020-05-15 06:09 | CA_ITS ---
APPROVED REPORT Sales Driver: MIGUEL Laterality: Bilateral Study Quality: Good Indications: carotid artery stenosis Risk Factors TIA/CVA History Stroke PAD Smoking Surgery/Intervention Endarterectomy: right Doppler Spectral Velocity Analysis ECA (R) 161.80/17.30 cm/s Vert (L) 61.60/18.30 cm/s dICA (R) 71.30/33.70 cm/s Alma (R) 72.20/26.00 cm/s pICA (R) 91.50/20.20 cm/s dCCA (R) 82.30/24.80 cm/s pCCA (R) 84.80/22.30 cm/s Vert (R) 69.30/28.90 cm/s Findings Duplex evaluation demonstrates stenosis of the right proximal internal carotid artery <20% with PSV <140 cm/sec, EDV <100 cm/sec, and IC/CC Ratio <4.0.Duplex evaluation demonstrates occlusion for the left proximal internal carotid artery. Bilatral vertebral arteries demonstrate antegrade flow. Electronically signed by : Himanshu Pitts MD 05/15/2020 14:50:20
== END ==
PROVIDERS: PCP Physician Assistant; Visit Provider Nurse Practitioner Family
DX: R06.00 Dyspnea, unspecified (principal); R42 Dizziness and giddiness; R01.1 Cardiac murmur, unspecified; R94.31 Abnormal electrocardiogram [ECG] [EKG]; I65.23 Occlusion and stenosis of bilateral carotid arteries; I73.9 Peripheral vascular disease, unspecified; I63.231 Cerebral infarction due to unspecified occlusion or stenosis of right carotid arteries; R20.0 Anesthesia of skin; I25.118 Atherosclerotic heart disease of native coronary artery with other forms of angina pectoris; I11.9 Hypertensive heart disease without heart failure; F17.200 Nicotine dependence, unspecified, uncomplicated; Z82.49 Family history of ischemic heart disease and other diseases of the circulatory system; F10.20 Alcohol dependence, uncomplicated
CPT/HCPCS: 93306; 93880

== ENCOUNTER → 2020-06-25 15:22 | Outpatient (CLI) | payer OTHER, SELFPAY ==
[2020-06-25 21:06] LABS: Benzodiazepines Screen,Urine Negative ng/ml (<200)
[2020-06-25 21:07] LABS: Amphetamine/Metha Screen,Urine Negative ng/ml (<1000); Barbiturates Screen,Urine Negative ng/ml (<200)
[2020-06-25 21:08] LABS: Cannabinoid Screen,Urine Positive ng/ml (<50)
[2020-06-25 21:09] LABS: Cocaine Screen,Urine Negative ng/ml (<300); Methadone Screen,Urine Negative ng/ml (<300)
[2020-06-25 21:10] LABS: Opiate Screen,Urine Negative ng/ml (<300); Phencyclidine Screen,Urine Negative ng/ml (<25)
== END ==
PROVIDERS: Visit Provider Physician Assistant
DX: Z79.899 Other long term (current) drug therapy (principal)
CPT/HCPCS: 80305

== ENCOUNTER → 2021-04-15 16:00 | Outpatient (CLI) | payer OTHER, SELFPAY ==
[2021-04-15 14:16] LABS: Basophils % 0.6 % (0.1-2.0); Chloride 110 mmol/L (98-107); Eosinophils # 0.1 K/mm3 (0.0-0.4); Eosinophils % 1.9 % (0.1-12.0); Hematocrit 48.9 % (42.0-52.0); Hemoglobin 15.9 g/dL (14.1-18.0); Lymphocytes # 1.6 K/mm3 (0.7-4.5); Lymphocytes % 23.2 % (10-50); Mean Corpuscular HGB Conc 32.4 g/dL (31.8-35.4); Mean Corpuscular Hemoglobin 29.4 pg (27.0-31.2); Mean Corpuscular Volume 90.5 fl (80-94); Mean Platelet Volume 8.7 fl (7.4-10.4); Monocytes # 0.4 K/mm3 (0.1-1.0); Monocytes % 5.4 % (1.7-9.3); Neutrophils # 4.6 K/mm3 (1.8-7.8); Neutrophils % 68.8 % (37.0-80.0); Platelet Count 184 K/mm3 (142-424); Red Cell Distribution Width 13.8 % (11.5-17.5); White Blood Count 6.7 K/mm3 (4.8-10.8)
[2021-04-15 14:17] LABS: Potassium 4.1 mmoL/L (3.5-5.1); Sodium 140 mmol/L (136-145)
[2021-04-15 14:19] LABS: Alanine Aminotransferase 17 U/L (12-78); Alkaline Phosphatase 85 U/L (38-126); Anion Gap 11.1 mEq/L (5-15); Aspartate Amino Transferase 19 U/L (17-59); Bilirubin,Total 0.5 mg/dl (0.2-1.3); Blood Urea Nitrogen 13 mg/dl (9-20); Carbon Dioxide 23 mmol/L (22.0-30.0); Cholesterol 213 mg/dl (140-200); Estimated Glomerular Filt Rate 98 ml/min (>60); GFR (African American) 118 ML/MIN (>60); Triglycerides 221 mg/dl (30-150); VLDL Cholesterol 44 mg/dL (0-40)
[2021-04-15 14:20] LABS: Albumin Level 4.3 g/dl (3.5-5.0); Albumin/Globulin Ratio 1.7 (1.1-1.8); Chol/HDL Ratio 5.9 (1-3.5); Globulin 2.5 g/dL (1.3-3.2); Glucose 86 mg/dl (74-100); HDL Cholesterol 36 mg/dl (40-60); Total Protein,Serum 6.8 g/dl (6.3-8.2)
[2021-04-15 14:31] LABS: Direct LDL Cholesterol 65.66 mg/dL (100-129)
[2021-04-15 14:51] LABS: Thyroid Stimulating Hormone 1.24 uIU/mL (0.465-4.68)
[2021-04-15 14:53] LABS: 25-OH Vitamin D, Total 18.6 ng/mL (30-100)
[2021-04-15 19:18] LABS: Prostate Specific Ag Screen 0.7 ng/ml (0.0-4.0)
== END ==
PROVIDERS: Visit Provider Physician Assistant
DX: I10 Essential (primary) hypertension (principal); E78.5 Hyperlipidemia, unspecified; E55.9 Vitamin D deficiency, unspecified; Z12.5 Encounter for screening for malignant neoplasm of prostate
CPT/HCPCS: 80053; 80061; 82306; 84443; 85025; G0103

== ENCOUNTER → 2022-07-22 08:34 | Outpatient (CLI) | payer MEDICAID, SELFPAY ==
[2022-07-22 15:25] LABS: Alanine Aminotransferase 15 U/L (12-78); Albumin/Globulin Ratio 1.7 (1.1-1.8); Alkaline Phosphatase 82 U/L (38-126); Anion Gap 17.6 mEq/L (5-15); Aspartate Amino Transferase 22 U/L (17-59); Bilirubin,Total 0.8 mg/dl (0.2-1.3); Blood Urea Nitrogen 12 mg/dl (9-20); Calcium 8.8 mg/dl (8.4-10.2); Carbon Dioxide 28 mmol/L (22.0-30.0); Chloride 99 mmol/L (98-107); Chol/HDL Ratio 6.4 (1-3.5); Cholesterol 224 mg/dl (140-200); Estimated Glomerular Filt Rate 97 ml/min (>60); GFR (African American) 118 ML/MIN (>60); Globulin 2.4 g/dL (1.3-3.2); Glucose 79 mg/dl (74-100); HDL Cholesterol 35 mg/dl (40-60); Potassium 3.6 mmoL/L (3.5-5.1); Sodium 141 mmol/L (136-145); Total Protein,Serum 6.4 g/dl (6.3-8.2); Triglycerides 253 mg/dl (30-150); VLDL Cholesterol 51 mg/dL (0-40)
[2022-07-22 15:36] LABS: Direct LDL Cholesterol 79.46 mg/dL (100-129)
[2022-07-22 15:54] LABS: Basophils % 0.3 % (0.1-2.0); Eosinophils # 0.2 K/mm3 (0.0-0.4); Hematocrit 52.2 % (42.0-52.0); Hemoglobin 16.8 g/dL (14.1-18.0); Lymphocytes # 1.6 K/mm3 (0.7-4.5); Lymphocytes % 20.4 % (10-50); Mean Corpuscular HGB Conc 32.2 g/dL (31.8-35.4); Mean Corpuscular Hemoglobin 29.3 pg (27.0-31.2); Mean Corpuscular Volume 90.8 fl (80-94); Mean Platelet Volume 9.3 fl (7.4-10.4); Monocytes # 0.5 K/mm3 (0.1-1.0); Monocytes % 6.4 % (1.7-9.3); Neutrophils # 5.4 K/mm3 (1.8-7.8); Neutrophils % 70.9 % (37.0-80.0); Platelet Count 152 K/mm3 (142-424); Red Blood Count 5.74 M/mm3 (4.60-6.20); Red Cell Distribution Width 14.4 % (11.5-17.5); White Blood Count 7.6 K/mm3 (4.8-10.8)
[2022-07-22 15:56] LABS: Thyroid Stimulating Hormone 2.47 uIU/mL (0.465-4.68)
== END ==
PROVIDERS: PCP Physician Assistant; Visit Provider Physician Assistant
DX: I10 Essential (primary) hypertension (principal); E66.9 Obesity, unspecified; Z68.31 Body mass index [BMI] 31.0-31.9, adult; Z12.5 Encounter for screening for malignant neoplasm of prostate
CPT/HCPCS: 80053; 80061; 82306; 84443; 85025; G0103

== ENCOUNTER 2022-07-28 22:12 | Emergency (ER) | payer MEDICAID, SELFPAY ==
--- NOTE | 2022-07-28 22:10 | ECG_ITS ---
APPROVED REPORT Exam: Resting ECG HR:77 bpm ECG Measurements Heart Rate 77 AXES MT 145 P 71 QRSd 93 QRS 74 QT 315 T 67 QTc 347 Conclusion SINUS RHYTHM NONSPECIFIC ST & T-WAVE ABNORMALITY BORDERLINE ECG UNCONFIRMED REPORT Electronically signed by : Thanh Penn MD 07/30/2022 21:42:34
[2022-07-28 22:13] VITALS: BP 194/82; PULSE 70; RESP 19; TEMP 36.6; O2SAT 95; BMI 29.9
--- NOTE | 2022-07-28 22:13 | CT_ITS ---
PROCEDURE INFORMATION: Exam: CT Head Without Contrast Exam date and time: 07/28/2022 10:22 PM Age: 62 years old Clinical indication: Stroke-like symptoms; Headache; Additional info: R/O stroke TECHNIQUE: Imaging protocol: Computed tomography of the head without contrast. Radiation optimization: All CT scans at this facility use at least one of these dose optimization techniques: automated exposure control; mA and/or kV adjustment per patient size (includes targeted exams where dose is matched to clinical indication); or iterative reconstruction. Other technique: STROKE PROTOCOL was implemented. REPORTING DATA: Count of CT and Cardiac NM exams in prior 12 months: This patient has received 0 known CTs and 0 known cardiac nuclear medicine studies in the 12 months prior to the current study. COMPARISON: HEADWO CT head/brain wo con 03/22/2017 10:21 AM FINDINGS: Brain: Age appropriate atrophy and small vessel ischemic change. No evidence of intracranial hemorrhage, mass effect, midline shift or extra-axial fluid collections. Midline structures are normal. Shaw-white matter differentiation is normal. There is an old infarct in the left posterior temporal lobe. Cerebral ventricles: No ventriculomegaly. Paranasal sinuses: Mucosal thickening in the ethmoid and maxillary sinuses. Mastoid air cells: There is fluid in the right mastoid air cells. Orbital cavities: The patient has had bilateral lens replacement surgery. Bones/joints: Unremarkable. No acute fracture. Soft tissues: Unremarkable. Vasculature: Carotid and vertebral artery atherosclerotic calcification. IMPRESSION: No acute intracranial abnormality. Right mastoid effusion. ASSESSMENT: ASPECTS ([place] Stroke Program Early CT Score) is 10 .
--- NOTE | 2022-07-28 22:17 | CT_ITS ---
PROCEDURE INFORMATION: Exam: CTA Neck With Contrast Exam date and time: 07/28/2022 10:28 PM Age: 62 years old Clinical indication: Stroke-like symptoms; Visual disturbance; Additional info: Numbness and right eye vision changes TECHNIQUE: Imaging protocol: Computed tomographic angiography of the neck with contrast. 3D rendering (Not supervised by radiologist): MIP and/or 3D reconstructed images were created by the technologist. Radiation optimization: All CT scans at this facility use at least one of these dose optimization techniques: automated exposure control; mA and/or kV adjustment per patient size (includes targeted exams where dose is matched to clinical indication); or iterative reconstruction. Contrast material: ISOVUE; Contrast volume: 100 ml; Contrast route: INTRAVENOUS (IV); REPORTING DATA: Count of CT and Cardiac NM exams in prior 12 months: This patient has received 0 known CTs and 0 known cardiac nuclear medicine studies in the 12 months prior to the current study. COMPARISON: SPCERV MR cervical spine wo con 07/05/2017 10:13 AM FINDINGS: Right common carotid artery: No stenosis. No dissection or occlusion. Right internal carotid artery: No stenosis of the extracranial segment. No dissection or occlusion. Right external carotid artery: No occlusion or stenosis of the origin. Left common carotid artery: There is occlusion of the left common carotid artery throughout its entire length. Left internal carotid artery: There is occlusion of the left internal carotid artery throughout its entire length. Left external carotid artery: Occlusion of the origin of the left external carotid artery. Contrast is seen within the branches more distally, likely due to backflow through anastomoses. Right vertebral artery: No stenosis. No dissection or occlusion. Left vertebral artery: No stenosis. No dissection or occlusion. Soft tissues: Normal. No significant soft tissue swelling. Bones/joints: No acute fracture. 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 REFERENCES: NASCET CRITERIA. The degree of stenosis in the cervical segment of the internal carotid artery is based on NASCET criteria. Normal is no stenosis. Mild is less than 50% stenosis. Moderate is 50-69% stenosis. Severe is 70% to 99% stenosis. Total occlusion is no detectable patent lumen.
--- NOTE | 2022-07-28 22:17 | CT_ITS ---
PROCEDURE INFORMATION: Exam: CTA Head With Contrast, Arteriography Exam date and time: 07/28/2022 10:28 PM Age: 62 years old Clinical indication: Stroke-like symptoms; Generalized numbness/paresthesia; Additional info: Numbness and right eye vision changes TECHNIQUE: Imaging protocol: Computed tomographic angiography of the head with contrast. Exam focused on the arteries. 3D rendering (Not supervised by radiologist): MIP and/or 3D reconstructed images were created by the technologist. Radiation optimization: All CT scans at this facility use at least one of these dose optimization techniques: automated exposure control; mA and/or kV adjustment per patient size (includes targeted exams where dose is matched to clinical indication); or iterative reconstruction. Contrast material: ISOVUE 370; Contrast volume: 100 ml; Contrast route: INTRAVENOUS (IV); REPORTING DATA: Count of CT and Cardiac NM exams in prior 12 months: This patient has received 0 known CTs and 0 known cardiac nuclear medicine studies in the 12 months prior to the current study. COMPARISON: CT HEAD/BRAIN WO CON 07/28/2022 10:22 PM FINDINGS: ANTERIOR CIRCULATION: Right internal carotid artery: Intracranial segment is patent with no significant stenosis. No aneurysm. Right middle cerebral artery: No occlusion or significant stenosis. No aneurysm. Right anterior cerebral artery: No occlusion or significant stenosis. No aneurysm. Left internal carotid artery: There is occlusion of the left internal carotid artery as it enters the skull base up to the ophthalmic segment. Contrast distal to this is most likely backflow from the [id number]. Left middle cerebral artery: No occlusion or significant stenosis. No aneurysm. Left anterior cerebral artery: No occlusion or significant stenosis. No aneurysm. POSTERIOR CIRCULATION: Right vertebral artery: No occlusion or significant stenosis. No aneurysm. Left vertebral artery: No occlusion or significant stenosis. No aneurysm. Basilar artery: No occlusion or significant stenosis. No aneurysm. Right posterior cerebral artery: No occlusion or significant stenosis. No aneurysm. Left posterior cerebral artery: No occlusion or significant stenosis. No aneurysm. Brain: No definite mass, mass effect, or midline shift. Cerebral ventricles: No ventriculomegaly. Bones/joints: Unremarkable. Soft tissues: Unremarkable. IMPRESSION: Occlusion of the intracranial portion of the left ICA up to the ophthalmic segment.
--- NOTE | 2022-07-28 22:17 | PC.NURSE ---
CT taking patient for stroke protocol scan
[2022-07-28 22:25] LABS: Basophils # 0.1 K/mm3 (0-0.2); Basophils % 0.5 % (0.1-2.0); Eosinophils # 0.2 K/mm3 (0.0-0.4); Eosinophils % 2.3 % (0.1-12.0); Hematocrit 48.7 % (42.0-52.0); Hemoglobin 16.4 g/dL (14.1-18.0); Lymphocytes # 2.5 K/mm3 (0.7-4.5); Lymphocytes % 23.8 % (10-50); Mean Corpuscular HGB Conc 33.6 g/dL (31.8-35.4); Mean Corpuscular Volume 89.2 fl (80-94); Monocytes # 0.5 K/mm3 (0.1-1.0); Monocytes % 5.2 % (1.7-9.3); Neutrophils % 68.2 % (37.0-80.0); Platelet Count 177 K/mm3 (142-424); Red Blood Count 5.46 M/mm3 (4.60-6.20); Red Cell Distribution Width 14.2 % (11.5-17.5); White Blood Count 10.3 K/mm3 (4.8-10.8)
[2022-07-28 22:36] VITALS: BP 135/76; PULSE 68; RESP 10; O2SAT 94
[2022-07-28 22:36] LABS: Alanine Aminotransferase 25 U/L (12-78); Albumin Level 4.4 g/dl (3.5-5.0); Albumin/Globulin Ratio 1.6 (1.1-1.8); Alkaline Phosphatase 81 U/L (38-126); Anion Gap 18.3 mEq/L (5-15); Aspartate Amino Transferase 29 U/L (17-59); Bilirubin,Total 0.6 mg/dl (0.2-1.3); Blood Urea Nitrogen 15 mg/dl (9-20); Calcium 8.8 mg/dl (8.4-10.2); Carbon Dioxide 27 mmol/L (22.0-30.0); Chloride 97 mmol/L (98-107); Chol/HDL Ratio 5.4 (1-3.5); Cholesterol 188 mg/dl (140-200); Creatinine Clearance Estimated 95 mL/min (50-200); Estimated Glomerular Filt Rate 114 ml/min (>60); GFR (African American) 137 ML/MIN (>60); Globulin 2.8 g/dL (1.3-3.2); Glucose 115 mg/dl (74-100); HDL Cholesterol 35 mg/dl (40-60); Potassium 3.3 mmoL/L (3.5-5.1); Sodium 139 mmol/L (136-145); Total Protein,Serum 7.2 g/dl (6.3-8.2); Triglycerides 390 mg/dl (30-150); VLDL Cholesterol 78 mg/dL (0-40)
--- NOTE | 2022-07-28 22:36 | PC.NURSE ---
Patient back from CT
[2022-07-28 22:37] LABS: Activated Partial Thrombo Time 27.5 seconds (22.8-30.6); INR 0.98 (0.9-1.1); Prothrombin Time 10.6 seconds (10.1-12.5)
--- NOTE | 2022-07-28 22:42 | PC.NURSE ---
salo on phone with Yesika
--- NOTE | 2022-07-28 22:43 | HMH.EDNEU ---
Discharge Plan Disposition Patient Disposition: Xfer Short-Term Hosp Prescriptions Prescriptions: No Action atorvastatin 40 mg tablet 40 mg PO DAILY gabapentin 400 mg capsule 400 mg PO BID Label Comments: TAKE 1 CAPSULE BY MOUTH TWICE A DAY hydralazine 25 mg tablet 25 mg PO TID Label Comments: TAKE 1 TABLET BY MOUTH THREE TIMES A DAY bisoprolol fumarate 5 mg tablet 5 mg PO DAILY Label Comments: TAKE 1 TABLET BY MOUTH EVERY DAY amlodipine 10 mg tablet 10 mg PO DAILY Label Comments: TAKE 1 TABLET BY MOUTH EVERY DAY ropinirole 0.5 mg tablet 0.5 - 1 mg PO HSP PRN (Reason: RLS) Label Comments: TAKE 1-2 TABLETS BY MOUTH EVERY NIGHT AT BEDTIME aspirin 81 mg Tablet,Chewable 81 mg PO DAILY montelukast 10 mg tablet 10 mg PO DAILY Label Comments: TAKE 1 TABLET BY MOUTH EVERY DAY albuterol sulfate 90 mcg/actuation HFA aerosol inhaler 2 inh INHALATION Q6HP PRN (Reason: Breathing Problems) Label Comments: INHALE 2 PUFFS BY MOUTH EVERY 6 HOURS . USE WITH SPACER losartan-hydrochlorothiazide 100-12.5 mg tablet 1 tab PO DAILY Label Comments: TAKE 1 TABLET BY MOUTH EVERY DAY nebivolol 10 mg tablet 10 mg PO DAILY Label Comments: TAKE 1 TABLET BY MOUTH EVERY DAY Referrals Follow up/Referrals: Jeimy Mckeon PA [Primary Care Provider] - See instructions Clinical Impressions Clinical Impression: Tobacco use, CVA (cerebral vascular accident) Stand Alone Forms Stand Alone Forms: Transfer Record - ED Discharge ED Provider: Feliberto (ED)[facility] Neuro HPI General Chief Complaint: Neuro Symptoms/Deficit Stated Complaint: chest pain Time Seen by Provider: 07/28/22 22:43 Mode of Arrival: Wheelchair Source of Information: Patient, Spouse and Medical Record Limitations: No Limitations Description of Symptoms (Recalled from ER Triage Doc. by RN): 62 M presents with spouse at bedside from home. Approximately 2144 patient became numb all over and had vision changes to his right eye. Patient reports his right eye became fuzzy and he began to feel funny Patient reports this is what happened with a previous CVA. Symptoms are now fully resolved on arrival. History of Present Illness HPI Narrative: pt with acute onset of visual sx at 2145 and had weakness and tingling lt upper ext and lower ext which has improved - no speech sx- hx of prev cva 2016 - no anticouag - on asa - positive tob - hx of htn Onset (ago): hour(s) Timing confirmed by: spouse Location: left arm and left leg History of same: Yes Severity: moderate Quality: tingling Context: sudden onset On Anticoagulants: No Associated symptoms: denies other symptoms Treatments Prior to Arrival: none Related Data Home Medications Medication Instructions Recorded Confirmed albuterol sulfate 90 mcg/actuation 2 inh inhalation Q6HP PRN 07/28/22 07/28/22 aerosol inhaler Breathing Problems amlodipine 10 mg tablet 10 mg PO DAILY High blood pressure 07/28/22 07/28/22 aspirin 81 mg chewable tablet 81 mg PO DAILY Heart rhythm 07/28/22 07/28/22 atorvastatin 40 mg tablet 40 mg PO DAILY Cholesterol 07/28/22 07/28/22 bisoprolol fumarate 5 mg tablet 5 mg PO DAILY Heart rhythm 07/28/22 07/28/22 gabapentin 400 mg capsule 400 mg PO BID Pain 07/28/22 07/28/22 hydralazine 25 mg tablet 25 mg PO TID High blood pressure 07/28/22 07/28/22 losartan 100 1 tab PO DAILY High blood pressure 07/28/22 07/28/22 mg-hydrochlorothiazide 12.5 mg tablet montelukast 10 mg tablet 10 mg PO DAILY Allergy symptoms 07/28/22 07/28/22 nebivolol 10 mg tablet 10 mg PO DAILY Heart rhythm 07/28/22 07/28/22 ropinirole 0.5 mg tablet 0.5 - 1 mg PO HSP PRN RLS 07/28/22 07/28/22 Allergies Allergy/AdvReac Type Severity Reaction Status Date / Time Sulfa (Sulfonamide Allergy Mild Verified 07/22/22 08:38 Antibiotics) STEROID Allergy Intermediate CAUSES Uncoded 07/22/22 08:38 PROBL
[2022-07-28 22:54] LABS: Troponin I < 0.01 ng/ml (0.00-0.034)
--- NOTE | 2022-07-28 22:54 | PC.NURSE ---
VIS iPad notified us of possible LVO; Attending here notified. At the same time he is also speaking with Vrad regarding results
[2022-07-28 23:00] VITALS: BP 139/77; PULSE 52; RESP 21; O2SAT 93
[2022-07-28 23:30] VITALS: BP 127/69; PULSE 32; RESP 18; O2SAT 94
--- NOTE | 2022-07-28 23:30 | PC.NURSE ---
DR CERVANTES S/W MINDAAD
--- NOTE | 2022-07-28 23:34 | PC.NURSE ---
calling [facility] for possible transfer
--- NOTE | 2022-07-28 23:35 | PC.NURSE ---
Dr. Dao speaking with [facility] stroke navigator
--- NOTE | 2022-07-28 23:43 | PC.NURSE ---
Pt accepted at [facility] by Dr. Bassett
--- NOTE | 2022-07-28 23:51 | PC.NURSE ---
Handoff report to MALI Gallagher
--- NOTE | 2022-07-29 00:05 | PC.NURSE ---
AT BEDSIDE DISCUSSING WITH PT AND FAMILY ABOUT RESULTS AND TRANSFER TO [facility]. HE IS NOW C/O A HEADACHE. MD ORDERED NS IVF BOLUS AND 1G OFIRMEV.
--- NOTE | 2022-07-29 00:22 | PC.NURSE ---
[facility] CALLING FOR REPORT. S/W MELVIN RN AND GAVE REPORT ON PT. BED ASSIGNMENT RECEIVED OF [facility] BED 344. ASKED EMS TO ARRIVE TO [facility]. CALL [phone] @ 10 MIN OUT.
--- NOTE | 2022-07-29 01:30 | PC.NURSE ---
GAVE EMS REPORT TO Tera ECHAVARRIA EMT-P
[2022-07-29 01:40] VITALS: BP 141/81; PULSE 54; RESP 20; TEMP 36.8; O2SAT 96
--- NOTE | 2022-07-29 01:50 | PC.NURSE ---
CALLED [facility] TO NOTIFY THAT PT DEPARTED ER @ 0140. ALSO ADVISED PT NOW NIHSS OF 2 D/T SLIGHTLY SLURRED SPEECH ON OCCASION AND LAPSE IN MEMORY OF REASON FOR TRANSFER AND DIAGNOSIS, S/W MELVIN SAMSON.
[2022-11-09 10:21] LABS: POC Glucose,Bedside 123 (70-110)
== END 2022-07-29 01:45 | disposition short-term general hospital (02) ==
PROVIDERS: Emergency Provider Emergency Medicine; PCP Physician Assistant
DX: I63.9 Cerebral infarction, unspecified (principal); R07.9 Chest pain, unspecified; I10 Essential (primary) hypertension; I73.9 Peripheral vascular disease, unspecified; I65.29 Occlusion and stenosis of unspecified carotid artery; F17.210 Nicotine dependence, cigarettes, uncomplicated
CPT/HCPCS: 70450; 70496; 70498; 80053; 80061; 82962; 84484; 85025; 85610; 85730; 93005; 96361; 96374; 99285; 99291; J0131; Q9967

== ENCOUNTER → 2022-09-01 06:50 | Outpatient (CLI) | payer MEDICAID, SELFPAY | PROVIDERS: PCP Physician Assistant; Visit Provider Nurse Practitioner Family | DX: R06.09 Other forms of dyspnea (principal); I25.10 Atherosclerotic heart disease of native coronary artery without angina pectoris; I11.9 Hypertensive heart disease without heart failure; E78.2 Mixed hyperlipidemia; I63.9 Cerebral infarction, unspecified; I65.23 Occlusion and stenosis of bilateral carotid arteries; I73.9 Peripheral vascular disease, unspecified; Z72.0 Tobacco use | CPT/HCPCS: 93306 ==

== ENCOUNTER → 2022-12-07 12:03 | Outpatient (CLI) | payer MEDICAID, SELFPAY | LOC: RT 12:04 | PROVIDERS: PCP Physician Assistant; Visit Provider Internal Medicine | DX: R00.1 Bradycardia, unspecified (principal) | CPT/HCPCS: 93225 ==

== ENCOUNTER → 2023-02-17 10:30 | Outpatient (CLI) | payer MEDICARE, MEDICAID, SELFPAY ==
--- NOTE | 2023-02-17 10:52 | XR_ITS ---
FINAL REPORT CLINICAL HISTORY: Shortness of breath, productive cough COMPARISON: 04/04/2020 FINDINGS: Two views of the chest were obtained. The heart size and pulmonary vascularity are within normal limits. The mediastinum is normal. The lungs are hyperinflated consistent with COPD. No acute pulmonary abnormality is identified. There is no pneumothorax. The bony thorax is intact. IMPRESSION: No active cardiopulmonary disease. Reviewed, Interpreted and Dictated by Elijah Kirkland III, MD Transcribed by Tati Olvera Authenticated and . [facility]
[2023-02-17 11:07] LABS: Basophils % 0.4 % (0.1-2.0); Eosinophils # 0.2 K/mm3 (0.0-0.4); Eosinophils % 1.9 % (0.1-12.0); Hematocrit 46.5 % (42.0-52.0); Hemoglobin 15.6 g/dL (14.1-18.0); Lymphocytes # 1.6 K/mm3 (0.7-4.5); Lymphocytes % 18.7 % (10-50); Mean Corpuscular HGB Conc 33.5 g/dL (31.8-35.4); Mean Corpuscular Hemoglobin 29.4 pg (27.0-31.2); Mean Corpuscular Volume 87.8 fl (80-94); Mean Platelet Volume 7.6 fl (7.4-10.4); Monocytes # 0.8 K/mm3 (0.1-1.0); Monocytes % 9.2 % (1.7-9.3); Neutrophils # 6.1 K/mm3 (1.8-7.8); Neutrophils % 69.7 % (37.0-80.0); Platelet Count 148 K/mm3 (142-424); Red Cell Distribution Width 14.2 % (11.5-17.5); White Blood Count 8.7 K/mm3 (4.8-10.8)
[2023-02-17 11:23] LABS: Alanine Aminotransferase 19 U/L (12-78); Albumin Level 4.3 g/dl (3.5-5.0); Albumin/Globulin Ratio 1.8 (1.1-1.8); Alkaline Phosphatase 90 U/L (38-126); Anion Gap 9.9 mEq/L (5-15); Aspartate Amino Transferase 21 U/L (17-59); Bilirubin,Total 0.5 mg/dl (0.2-1.3); Blood Urea Nitrogen 11 mg/dl (9-20); Calcium 8.9 mg/dl (8.4-10.2); Carbon Dioxide 33 mmol/L (22.0-30.0); Chloride 103 mmol/L (98-107); Estimated Glomerular Filt Rate 85 ml/min (>60); GFR (African American) 102 ML/MIN (>60); Globulin 2.4 g/dL (1.3-3.2); Glucose 88 mg/dl (74-100); Potassium 3.9 mmoL/L (3.5-5.1); Sodium 142 mmol/L (136-145); Total Protein,Serum 6.7 g/dl (6.3-8.2)
[2023-02-17 18:12] LABS: Adenovirus,PCR Not Detected (NotDetected); Bordetella Pertussis Not Detected (NotDetected); Chlamydophila Pneumoniae, PCR Not Detected (NotDetected); Coronavirus 19, PCR Not Detected (NotDetected); Coronavirus 229E Not Detected (NotDetected); Coronavirus NL63 Not Detected (NotDetected); Coronavirus OC43 Not Detected (NotDetected); Coronovirus HKU1,PCR Not Detected (NotDetected); Human Metapneumovirus Not Detected (NotDetected); Influenza A, PCR Not Detected (NotDetected); Influenza AH1, 2009 Not Detected (NotDetected); Influenza AH1, PCR Not Detected (NotDetected); Influenza AH3,PCR Not Detected (NotDetected); Influenza B, PCR Not Detected (NotDetected); Mycoplasma Pneumoniae, PCR Not Detected (NotDetected); Parainfluenza 1, PCR Not Detected (NotDetected); Parainfluenza 2, PCR Not Detected (NotDetected); Parainfluenza 3, PCR Not Detected (NotDetected); Parainfluenza 4, PCR Not Detected (NotDetected); Respiratory Syncytial Virus Not Detected (NotDetected)
[2023-02-22 08:14] LABS: Rhinovirus/Enterovirus Detected (NotDetected)
== END ==
PROVIDERS: PCP Family Medicine; Visit Provider Family Medicine
DX: R06.02 Shortness of breath (principal); J44.1 Chronic obstructive pulmonary disease with (acute) exacerbation; R05.9 Cough, unspecified; R06.2 Wheezing; B34.1 Enterovirus infection, unspecified
CPT/HCPCS: 36415; 71046; 80053; 85025; 87581; 87632; 87635; 87798

== ENCOUNTER → 2023-02-17 23:00 | Outpatient (CLI) | payer MEDICAID, SELFPAY | PROVIDERS: PCP Physician Assistant; Visit Provider Family Medicine | DX: R06.02 Shortness of breath (principal) ==

== ENCOUNTER → 2023-02-24 12:47 | Outpatient (CLI) | payer MEDICARE, MEDICAID, SELFPAY ==
[2023-02-24] MEDS: ALBUTEROL 0.083% 2.5 MG/3 ML NEB IH (14:09)
== END ==
PROVIDERS: PCP Physician Assistant; Visit Provider Family Medicine
DX: R06.02 Shortness of breath (principal); R06.2 Wheezing; J44.1 Chronic obstructive pulmonary disease with (acute) exacerbation
CPT/HCPCS: 94060; 94727; 94729

== ENCOUNTER 2023-10-25 15:48 | Outpatient (CLI) | payer MEDICARE, SELFPAY ==
[2023-10-25 14:30] LABS: Basophils % 0.6 % (0.1-2.0); Eosinophils # 0.1 K/mm3 (0.0-0.4); Eosinophils % 1.6 % (0.1-12.0); Hematocrit 44.5 % (42.0-52.0); Hemoglobin 14.3 g/dL (14.1-18.0); Lymphocytes # 1.2 K/mm3 (0.7-4.5); Lymphocytes % 18.3 % (10-50); Mean Corpuscular HGB Conc 32.2 g/dL (31.8-35.4); Mean Corpuscular Hemoglobin 29.5 pg (27.0-31.2); Mean Corpuscular Volume 91.6 fl (80-94); Mean Platelet Volume 9.1 fl (7.4-10.4); Monocytes # 0.3 K/mm3 (0.1-1.0); Monocytes % 5.1 % (1.7-9.3); Neutrophils # 4.7 K/mm3 (1.8-7.8); Neutrophils % 74.4 % (37.0-80.0); Platelet Count 147 K/mm3 (142-424); Red Blood Count 4.86 M/mm3 (4.60-6.20); Red Cell Distribution Width 14.5 % (11.5-17.5); White Blood Count 6.3 K/mm3 (4.8-10.8)
[2023-10-25 15:19] LABS: Alanine Aminotransferase 14 U/L (12-78); Albumin Level 3.7 g/dl (3.5-5.0); Albumin/Globulin Ratio 1.5 (1.1-1.8); Alkaline Phosphatase 87 U/L (38-126); Anion Gap 8.9 mEq/L (5-15); Aspartate Amino Transferase 17 U/L (17-59); Bilirubin,Total 0.5 mg/dl (0.2-1.3); Blood Urea Nitrogen 13 mg/dl (9-20); Calcium 8.8 mg/dl (8.4-10.2); Carbon Dioxide 27 mmol/L (22.0-30.0); Chloride 109 mmol/L (98-107); Chol/HDL Ratio 4.8 (1-3.5); Cholesterol 149 mg/dl (140-200); Estimated Glomerular Filt Rate 113 ml/min (>60); GFR (African American) 137 ML/MIN (>60); Globulin 2.4 g/dL (1.3-3.2); Glucose 72 mg/dl (74-100); HDL Cholesterol 31 mg/dl (40-60); Potassium 3.9 mmoL/L (3.5-5.1); Sodium 141 mmol/L (136-145); Total Protein,Serum 6.1 g/dl (6.3-8.2); Triglycerides 222 mg/dl (30-150); VLDL Cholesterol 44 mg/dL (0-40)
[2023-10-25 15:29] LABS: Direct LDL Cholesterol 30.89 mg/dL (100-129)
[2023-10-25 15:41] LABS: 25-OH Vitamin D, Total 31.7 ng/mL (30-100)
[2023-10-25 15:49] LABS: Prostate Specific Ag Screen 0.9 ng/ml (0.0-4.0); Thyroid Stimulating Hormone 1.85 uIU/mL (0.465-4.68)
== END 2023-10-25 23:59 | disposition home or self-care (01) ==
LOC: LAB.DROPOF 15:49
PROVIDERS: PCP Physician Assistant; Visit Provider Physician Assistant
DX: E78.2 Mixed hyperlipidemia (principal); I10 Essential (primary) hypertension; R53.83 Other fatigue; E55.9 Vitamin D deficiency, unspecified; Z12.5 Encounter for screening for malignant neoplasm of prostate; F17.210 Nicotine dependence, cigarettes, uncomplicated
CPT/HCPCS: 80050; 80053; 80061; 82306; 84443; 85025; G0103

== ENCOUNTER 2024-03-09 09:42 | Outpatient (CLI) | payer MEDICARE, SELFPAY ==
--- NOTE | 2024-03-09 09:46 | US_ITS ---
FINAL REPORT TECHNIQUE: Ultrasound images of the testicles were obtained bilaterally. Color Doppler images were obtained. CLINICAL HISTORY: DISORDER OF MALE GENITAL ORGANS COMPARISON: None FINDINGS: There are moderate bilateral hydroceles noted. Proper flow is seen within both testicles. There is no evidence of testicular torsion. There is a small soft tissue appearing focus adjacent to the epididymis, probably due to testicular appendage. No flow is noted within this structure on the Doppler evaluation. There is a small cystic focus adjacent to the right testicle measuring 4 mm of unclear significance. IMPRESSION: Moderate bilateral hydroceles. No evidence of testicular torsion. Prominent right testicular appendage without definite flow. Cannot exclude torsion of the appendage. Please correlate clinically. Reviewed, Interpreted and Dictated by Socrates Lakhani MD Transcribed by Nikki Valle Authenticated and [facility]
== END 2024-03-09 23:59 | disposition home or self-care (01) ==
LOC: RAD 09:42
PROVIDERS: PCP Physician Assistant; Visit Provider Physician Assistant
DX: N50.89 Other specified disorders of the male genital organs (principal)
CPT/HCPCS: 76870